=== PATIENT | male | born 1960 | race Caucasian/White ===

== ENCOUNTER 2023-03-24 20:14 | Emergency (ER) | payer OTHER ==
[~2023-03-24] VITALS: Ht 165.1 cm; Wt 57.6 kg
--- NOTE | ~2023-03-24 | EKG ---
[facility] [address] [facility], [place] [address] Draft EK completed, results pending confirmation PATIENT NAME: DEL ROSARIOALEX Electrocardiogram DATE OF : 60 PHYSICIAN: PRELIMINARY REPORT #: [id number] REPORT IS CONFIDENTIAL AND NOT TO BE RELEASED WITHOUT AUTHORIZATION
[~2023-03-24 20:14] MED LIST: ASPIRIN EC81 MG PO; DAYQUIL; MOBIC7.5 MG PO; NAPROXEN500 MG PO; NORCO 5-325 TA1 EACH PO; SUDAFED 12-HOU120 MG PO; TRAMADOL HCL50 MG PO; TYLENOL325 MG PO; VENTOLIN HFA18 GM INH; ZITHROMAX250 MG PO
[2023-03-25 00:21] VITALS: BP 107/65
== END 2023-03-25 00:23 | disposition home or self-care (01) ==
LOC: ED 20:14
DX: E87.1 Hypo-osmolality and hyponatremia (principal); E86.0 Dehydration; Z87.891 Personal history of nicotine dependence; Z88.0 Allergy status to penicillin; Z79.899 Other long term (current) drug therapy
CPT/HCPCS: 36415; 70450; 71046; 72220; 80053; 81001; 83735; 85025; 93005; 93010